=== PATIENT | female | born 1960 | race Caucasian/White ===

== ENCOUNTER → 2025-01-17 12:23 | Outpatient (REF) | payer OTHER, SELFPAY | LOC: RCS 12:23 | PROVIDERS: ATTENDING PHYSICIAN Internal Medicine Interventional Cardiology; FAMILY PHYSICIAN Family Medicine | DX: R42 Dizziness and giddiness (principal); R06.02 Shortness of breath; E78.2 Mixed hyperlipidemia; I10 Essential (primary) hypertension | CPT/HCPCS: 93306 ==